=== PATIENT | female | born 2005 | race Hispanic/Latino ===

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

== ENCOUNTER 2025-04-25 13:44 | Emergency (ER) | payer BC ==
[~2025-04-25] VITALS: Ht 162.6 cm; Wt 86.3 kg
[~2025-04-25 13:44] MED LIST changes: +PREDNISONE20 MG PO; +VENTOLIN HFA18 GM INH; +WIXELA 100-501 EACH
[2025-04-25] MEDS: PREDNISONE 20 MG TAB PO ONE (15:20)
[2025-04-25] MEDS: SODIUM CHLORIDE 0.9% 1000ML 1,000 ML IV ONE (15:20)
[2025-04-25] MEDS: ALBUTEROL SULF 0.083% NEB SOLN 3 ML NEB NEB STA (15:21)
[2025-04-25 15:36] VITALS: PULSE 118; RESP 18
[2025-04-25] MEDS ORDERED: PREDNISONE50 MG PO (16:23)
[2025-04-25] MEDS ORDERED: VENTOLIN HFA18 GM INH (16:23)
[2025-04-25 16:46] VITALS: PULSE 100; RESP 16; TEMP 97.6; O2SAT 98
== END 2025-04-25 16:46 | disposition home or self-care (01) ==
LOC: FSED 14:28
DX: R06.02 Shortness of breath (principal); J45.901 Unspecified asthma with (acute) exacerbation
CPT/HCPCS: 71046; 80048; 83880; 85025; 85379; 99284; J7030; J7512